=== PATIENT | female | born 1960 | race Hispanic/Latino ===

== ENCOUNTER 2017-03-29 14:50 | Emergency (ER) | payer OTHER ==
[~2017-03-29] VITALS: Ht 172.7 cm; Wt 97.5 kg
[~2017-03-29 14:50] MED LIST: ATIVAN0.5 MG PO; ATIVAN1 MG PO; B-1100 MG PO; CARVEDILOL3.125 MG PO; FLUOXETINE HYDR20 M1 PO; FLUOXETINE HYDR20 MG PO; FLUOXETINE HYDR40 MG PO; FOLIC ACID1 M1 PO; GABAPENTIN300 M2 PO; HYDROQUINONE TOP; HYDROXYZINE50 MG PO; K-DUR 20MEQ TA20 MEQ PO; MAGNESIUM OXID400 MG PO; MOBIC7.5 M1 PO; MOMETASONE0.05 MG/Ac NASB; NASONEX0.05 MG/Ac NAS; NEXIUM20 MG PO; OMEPRAZOLE D/R20 MG PO; PROZAC10 MG; TRAZODONE50 MG PO; ZANTAC 150MG150 MG PO
--- NOTE | 2017-03-29 14:55 | ED GENERAL ADULT ---
History of Present Illness General Chief Complaint: Seizure Stated Complaint: WITNESSED GRAND MAL SEIZURE Source: patient, family, old records Exam Limitations: no limitations Vital Signs & Intake/Output Vital Signs & Intake/Output Vital Signs Date Time Temp Pulse Resp B/P B/P Pulse O2 O2 Flow FiO2 Mean Ox Delivery Rate 03/29 1714 97.4 70 18 130/60 99 03/29 1515 97.8 93 20 114/66 96 Allergies Coded Allergies: NO KNOWN ALLERGIES (07/06/15) Reconcile Medications Chlordiazepoxide HCl 25 MG CAPSULE 1 CAP PO DAILY ALCHOHOL WITHDRAWAL 1 TAB PO TID X 1 DAY, 1 TAB PO BID X 1 DAY, 1 TAB PO X 1 DAY Esomeprazole Magnesium (Nexium) 20 MG ECC 1 CAP PO DAILY GI (Reported) FLUOXETINE HCL (Prozac) (Unknown Strength) CAP (Unknown Dose) UNKNOWN ( Reported) FLUOXETINE HCL (Fluoxetine Hydrochloride) (Unknown Strength) CAP (Unknown Dose ) PO QAM MENTAL HEALTH (Reported) Folic Acid 1 MG TABLET 1 TAB PO DAILY SUPPLEMENT (Reported) Gabapentin 300 MG CAPSULE 1 CAP PO DAILY SEIZURES (Reported) Hydroxyzine Hydrochloride (Hydroxyzine) 50 MG TAB 1 TAB PO QPM SLEEP ( Reported) Magnesium Oxide 400 MG TAB 1 TAB PO DAILY SUPPLEMENT (Reported) Meloxicam (Mobic) 7.5 MG TABLET 1 TAB PO DAILY PRN JOINT PAIN Mometasone Furoate (Nasonex) 0.05 MG/Actuation SPR 1 SPRAY NASB DAILY CONGESTION (Reported) POTASSIUM CHLORIDE (K-Dur) 20 MEQ TAB 1 TAB PO DAILY SUPPLEMENT (Reported) Thiamine HCl (B-1) 100 MG TABLET 1 TAB PO DAILY SUPPLEMENT (Reported) TRAZODONE HCL (Trazodone HCl) 50 MG TAB 1 TAB PO QPM SLEEP (Reported) Triage Nurses Notes Reviewed? yes Onset: Just prior to arrival Duration: minute(s): (5) Timing: remote history Injury Environment: home Severity: moderate Severity Numbers: 5 No Modifying Factors: none HPI: Patient is a 56-year-old female with remote history of seizures presenting to the emergency department with chief complaint of seizure activity that lasted approximately 5 minutes prior to arrival. According to the daughter she was laying on the couch when it started and it ended. No fall, no head injury. Patient does not recall the episode at all. Denies any urinary incontinence. Patient presents that she was feeling fine, was able to eat lunch without difficulty. No fevers or chills. No recent upper respiratory symptoms. Denies chest pain palpitations or shortness of breath. Denies any drug or alcohol use. She does report that she saw a neurologist in the past and had a complete workup for her seizures and everything came back negative. Does not take any daily medications for seizures. Patient does report that she had about a half a bottle of wine 2 days ago. She has not been a daily drinker and over a year. After further evaluation patient admits that she likely had a withdrawal seizure about a year ago. Has not been drinking since then. (Domenica Lepe) Past History Medical History Any Pertinent Medical History? 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 No (Domenica Lepe) Review of Systems Review of Systems Constitutional: Reports: no symptoms. Comments Review of systems: See HPI, All other systems negative. Constitutional, no chills fever or weight loss HEENT: No visual changes no sore throat no congestion Cardiovascular: No chest pain ,palpitation , orthopnea or ankle swelling Skin, no jaundice no rashes Respiratory: No dyspnea cough sputum or hemoptysis GI: No nausea no vomiting : No dysuria No hematuria Muscle skeletal: no back pain, no neck pain, Neurologic: No numbness no headaches Psych: No stress anxiety or depression,. Heme/endocrine: No bruising no bleeding no polyuria or polydipsia Immunology: No splenectomy or history of AIDS (Domenica Lepe) Physical Exam Physical Exam General Appearance: well developed/nourished, no apparent distress, alert, awake , comfortable Comments: Well-developed well-nourished person in no acute distress HEENT: extraocular motion intact, no nystagmus. Pupils equally round and reactive to light and accommodation. Nose is atraumatic. External auditory canal and Tympanic membranes clear. Pharynx normal. No swelling or edema. Neck: Supple, no lymphadenopathy, normal range of motion without pain or tenderness Back: Nontender, full range of motion. Cardiovascular: Regular rate and rhythms no murmurs rubs or gallops Respiratory: No respiratory distress.breath sounds clear to auscultation bilaterally Abdomen: Soft, nontender nondistended, no appreciable organomegaly. Normal bowel sounds. No ascites, no rebound or guarding. Extremity: No edema, no calf tenderness to palpation, normal and equal pulses. Muscular strength is 5 out of 5 in upper and lower extremities. Dialer strength is equal and symmetric bilaterally. Neuro: Alert oriented x3, motor sensory normal, cranial nerves II through XII grossly intact. Cerebellar testing is unremarkable. Skin: No appreciable rash on exposed skin, skin is warm and dry. Psych: Mood and affect is normal, memory and judgment is normal. Core Measures ACS in differential dx? No CVA/TIA Diagnosis: No Sepsis Present: No Sepsis Focused Exam Completed? No (Oneal MELCHOR,Domenica) Progress Differential Diagnoses I considered the following diagnoses in my evaluation of the patient: Withdrawal seizure, electrolyte abnormality, epilepsy, dehydration, medication noncompliance Plan of Care: Orders Procedure Date/time Status EKG 03/29 1458 Active Telemetry/Merchandise Worker 03/29 1455 Active URINE DRUG SCREEN FOR ER ONLY 03/29 1455 Complete URINALYSIS 03/29 1455 Complete TROPONIN LEVEL 03/29 1455 Complete PROLACTIN 03/29 1455 Complete COMPREHENSIVE METABOLIC PANEL 03/29 1455 Complete CBC WITHOUT DIFFERENTIAL 03/29 1455 Complete Laboratory Tests 03/29/17 1620: Urine Opiates Screen < 100.00, Methadone Screen < 40, Barbiturate Screen < 60, Ur Phencyclidine Scrn < 6.00, Amphetamines Screen 609, U Benzodiazepines Scrn < 85, Urine Cocaine Screen < 50, Urine Cannabis Screen 15.70, Urine Color YEL, Urine Clarity CLEAR, Urine pH 6.0, Ur Specific [place] 1.020, Urine Protein TRACE H, Urine Ketones NEG, Urine Nitrite NEG, Urine Bilirubin NEG, Urine Urobilinogen 0.2, Ur Leukocyte Esterase TRACE H, Ur Microscopic SEDIMENT EXAMINED, Urine WBC RARE, Ur Epithelial Cells RARE, Urine Hemoglobin NEG, Urine Glucose NEG 03/29/17 1500: Anion Gap 20 H, Estimated GFR > 60, BUN/Creatinine Ratio 17.8, Glucose 107 H, Calcium 9.7, Total Bilirubin 0.6, AST 24, ALT 30, Alkaline Phosphatase 84, Troponin I < 0.01, Total Protein 7.2, Albumin 4.3, Globulin 2.9, Albumin/ Globulin Ratio 1.5, Prolactin 42.6 H, CBC w Diff NO MAN DIFF REQ, RBC 4.17 L, MCV 86.7, MCH 28.3, MCHC 32.6 L, RDW 13.9, MPV 7.1 L, Gran % 65.5, Lymphocytes % 24.2, Monocytes % 8.8, Eosinophils % 1.1, Basophils % 0.4, Absolute Granulocytes 4.3, Absolute Lymphocytes 1.6, Absolute Monocytes 0.6, Absolute Eosinophils 0.1, Absolute Basophils 0 d/w dr boyer and he agrees with plan. recommending sending pt home on librium taper. pt advised to stop drinking. pt does not want admission or detox. pt reports she does not drink daily. Initial ED EKG: NSR (87 bpm) (Domenica Lepe) Departure Departure Time of Disposition: 1651 Disposition: HOME OR SELF CARE Condition: Stable Clinical Impression Primary Impression: Seizure Referrals: Erin CENTENO,Lillian Nagel (PCP/Family) Additional Instructions: Follow-up with neurology, call tomorrow to make an appointment. Return for any worsening symptoms or concerns. Increase fluids to stay hydrated. Take Librium as prescribed. Departure Forms: Customer Survey General Discharge Information Prescriptions: Current Visit Scripts Chlordiazepoxide HCl 1 CAP PO DAILY #6 CAP 1 TAB PO TID X 1 DAY, 1 TAB PO BID X 1 DAY, 1 TAB PO X 1 DAY (Domenica Lepe) PA/LIGHT BULB REPLACER Co-Sign Statement Statement: ED Attending supervision documentation- I saw and evaluated the patient. I have also reviewed all the pertinent lab results and diagnostic results. I agree with the findings and the plan of care as documented in the PA's/LIGHT BULB REPLACER's documentation. x I have reviewed the ED Record and agree with the PA's/LIGHT BULB REPLACER's documentation. [] Additions or exceptions (if any) to the PAs/LIGHT BULB REPLACER's note and plan are summarized below: [] (Storm Boyer MD) Critical Care Note Critical Care Note Critical Care Time: non-applicable (Oneal MELCHOR,Domenica)
[2017-03-29 15:16] LABS: ABSOLUTE BASOPHIL COUNT 0 /CUMM (0.0-0.2); ABSOLUTE EOSINOPHIL COUNT 0.1 /CUMM (0.0-0.7); ABSOLUTE GRANULOCYTE CT 4.3 /CUMM (1.4-6.5); ABSOLUTE LYMPH COUNT 1.6 /CUMM (1.2-3.4); ABSOLUTE MONOCYTE COUNT 0.6 /CUMM (0.10-0.60); BASOPHIL % 0.4 % (0.0-2.0); EOSINOPHIL % 1.1 % (0-5); GRANULOCYTE % 65.5 % (42.2-75.2); HEMATOCRIT 36.2 % (37-47); MEAN CORPUSCULAR HGB 28.3 PG (27.0-31.0); MEAN CORPUSCULAR HGB CONC 32.6 G/DL (33.0-37.0); MEAN CORPUSCULAR VOLUME 86.7 FL (81.0-99.0); MEAN PLATELET VOLUME 7.1 FL (7.4-10.4); PLATELET COUNT 453 /CUMM (130-400); RBC DISTRIBUTION WIDTH 13.9 % (11.5-14.5); RED BLOOD CELL CT 4.17 /CUMM (4.20-5.40); WHITE BLOOD CELL COUNT 6.6 /CUMM (4.8-10.8)
--- NOTE | 2017-03-29 16:14 | RADIOLOGY REPORT ---
EXAMINATION: XR PORTABLE CHEST CLINICAL INFORMATION: Seizure COMPARISON: 12/28/2014 TECHNIQUE: Portable AP view of the chest was obtained. FINDINGS: Heart size is normal. Mediastinal contours are within normal range. Mild prominence of the upper mediastinum compared to previous examination most likely relates to technique. Lungs are clear without consolidation, effusion or pneumothorax. Visualized osseous structures appear intact. IMPRESSION: No acute pulmonary process
[2017-03-29] MEDS ORDERED: CHLORDIAZEPOXID25 M3 PO (17:10)
[2017-03-29 17:14] VITALS: BP 130/60
== END 2017-03-29 17:16 ==
LOC: ERH 14:50
PROVIDERS: Physician Assistant
DX: R56.9 Unspecified convulsions (principal)
CPT/HCPCS: 71045; 80307; 81001; 93005; 93010